=== PATIENT | male | born 1990 | race Caucasian/White ===

== ENCOUNTER 2021-02-28 14:23 | Emergency (ER) | payer MEDICARE, MEDICAID, SELFPAY ==
[2021-02-28 14:26] VITALS: BP 132/92; PULSE 97; RESP 18; TEMP 37; O2SAT 97; BMI 43.9
--- NOTE | 2021-02-28 14:41 | ECG_ITS ---
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 Measurements Intervals [place] Rate: 84 P: 30 UT: 145 QRS: -28 QRSD: 99 T: -6 QT: 369 QTc: 439 Interpretive Statements SINUS RHYTHM BORDERLINE LEFT AXIS DEVIATION [QRS AXIS < -20] No previous ECG available for comparison Electronically Signed On 02-28-2021 19:13:54 CDT by Avtar Rothman M.D. [id number]
--- NOTE | 2021-02-28 14:46 | XR_ITS ---
WS: [id number] Exam: XR elbow LT 2V [id number] Date/Time of Exam: 02/28/2021 2:50 PM Reason For Exam: ecchymoses/ fall No acute fracture or dislocation. Posterior soft tissue swelling. No joint effusion. XR/XR elbow LT 2V [id number] IMPRESSION: 1. No acute fracture. 2. Posterior soft tissue swelling.
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
[2021-02-28 15:00] LABS: Add Urine Microscopic? NO; Charge for UA Resulting for Rev
[2021-02-28 15:10] LABS: Bilirubin Urine Neg (Negative); Blood Urine Neg (Negative); Glucose Urine UA Norm (Normal); Ketones Urine Negative (Negative); Leukocyte Esterase Urine Negative (Negative); Nitrate Urine Negative (Negative); Protein Urine Neg (Negative); Specific Gravity, Urine 1.005 (1.005-1.030); Urine Appearance Clear (CLEAR); Urine Color Straw (Yellow); Urobilinogen Urine Norm (Negative); pH Urine 5 (5-7)
[2021-02-28 15:19] LABS: Basophils # 0.1 10^3/uL (0.0-0.1); Basophils % 0.9 %; Eosinophils # 0.1 10^3/uL (0.0-0.8); Eosinophils % 0.5 %; Hematocrit 42.9 % (42.0-52.0); Hemoglobin 13.9 g/dL (11.7-16.6); Lymphocytes # 2.4 10^3/uL (0.8-4.8); Lymphocytes % 18.3 %; Mean Corpuscular HGB Conc 32.4 g/dL (30.0-36.0); Mean Corpuscular Volume 86.3 fL (80-94); Mean Platelet Volume 8.8 fL (7.4-10.4); Monocytes % 7.8 %; Neutrophils # 9.38 10^3/uL (1.8-7.7); Nucleated Red Blood Cells % 0 %; Platelet Count 295 10^3/cmm (130-400); Red Blood Count 4.97 10^6/uL (4.1-5.3); Red Cell Distribution Width 13.8 % (12.1-15.1)
[2021-02-28 15:35] LABS: Amphetamines Screen Urine Negative (Negative); Barbiturates Screen Urine Negative (Negative); Benzodiazepines Screen Urine Negative (Negative); Cocaine Screen Urine Negative (Negative); Opiate Screen Urine Negative (Negative); PCP Screen Urine Negative (Negative); THC Screen Urine Negative (Negative)
[2021-02-28 15:42] LABS: Acetaminophen < 5.0 ug/mL (10-30); Alanine Aminotransferase 52 U/L (0-41); Albumin Level 4.4 g/dL (3.5-5.2); Alkaline Phosphatase 92 IU/L (40-130); Anion Gap 13.9 (5-19); Aspartate Amino Transferase 35 U/L (0-40); Blood Urea Nitrogen 7 mg/dL (6-20); Calcium 8.9 mg/dL (8.5-10.5); Carbon Dioxide 27 mmol/L (22-29); Chloride 102 mmol/L (98-107); Globulin 2.9 g/dL (1.3-4.6); Glomerular Filtration Rate 193.9 mL/min (90-130); Glucose 79 mg/dL (65-115); Osmolality Calculated 285 mOsm/kg (285-295); Potassium 3.9 mmol/L (3.5-5.1); Salicylate < 0.3 mg/dL (3-10); Sodium 139 mmol/L (136-145); Total Bilirubin 0.6 mg/dL (0.15-1.2); Total Protein 7.3 g/dL (6.6-8.7)
--- NOTE | 2021-03-04 13:46 | DCPLANNER ---
business change manager had message to speak with patient and his mother about intermediate placement for patient. business change manager called phone number [phone] just got a busy signal, called [phone] this number is no longer in service. business change manager then called patients mother, she stated that patient had been arrested, no longer needing superintendent [employer] placement at this time.
== END 2021-02-28 17:55 | disposition home or self-care (01) ==
PROVIDERS: Emergency Provider Family Medicine; PCP Family Medicine
DX: F32.9 Major depressive disorder, single episode, unspecified (principal); Z79.899 Other long term (current) drug therapy
CPT/HCPCS: 36415; 73070; 80053; 80306; 80307; 81003; 84443; 85025; 93005; 99283